=== PATIENT | male | born 1945 | race Caucasian/White ===

== ENCOUNTER 2020-09-28 18:12 | Emergency (ER) | payer OTHER ==
[2020-09-28] MEDS ORDERED: Sodium Chloride 0.9% 10 ML Syringe FLUSH PRN (18:35)
--- NOTE | 2020-09-28 18:40 | EDM.PDOC ---
ED HPI GENERAL MEDICAL PROBLEM - General Stated Complaint: FALL Time Seen by Provider: 09/28/20 18:28 Source of Information: Reports: Patient, Family - History of Present Illness INITIAL COMMENTS - FREE TEXT/NARRATIVE: Adolfo is a 74 y/o male who comes to the ER with complaints of a red warm area on his abdomen. He reports notcing last night that he had some red streaks on his abdomen and then today things got worse. No fever, but the rash on his abdomen seemed to spread almost over the entire region. Last night he did notice the areas was tender. He does have a wound on the anterior left leg that he is seeing [facility] care for. His primary care if the [facility] in [place] and he was seen there last week. He is also a diabetic. - Related Data Allergies Allergy/AdvReac Type Severity Reaction Status Date / Time No Known Allergies Allergy Verified 09/28/20 18:50 Home Meds: Home Meds Apixaban [Eliquis] 5 mg PO BID 09/28/20 [History] Sulfamethoxazole/Trimethoprim [Bactrim Ds Tablet] 1 each PO BID #18 tablet 09/28/20 [Rx] Review of Systems - Review of Systems Review Of Systems: See Below Constitutional: Reports: No Symptoms Eyes: Reports: No Symptoms Ears: Reports: No Symptoms Nose: Reports: No Symptoms Mouth/Throat: Reports: No Symptoms Respiratory: Reports: No Symptoms Cardiovascular: Reports: No Symptoms GI/Abdominal: Reports: No Symptoms Genitourinary: Reports: No Symptoms Musculoskeletal: Reports: No Symptoms Skin: Reports: Rash, Erythema (abdomen) Neurological: Reports: No Symptoms Psychiatric: Reports: No Symptoms ED EXAM, GENERAL - Physical Exam Exam: See Below General Appearance: Alert, WD/WN, No Apparent Distress (Elderly male) Eye Exam: Bilateral Eye: PERRL Ears: Hearing Grossly Normal Nose: Normal Inspection, Normal Mucosa Throat/Mouth: Normal Inspection, Normal Lips, Normal Voice Head: Atraumatic, Normocephalic Neck: Normal Inspection Respiratory/Chest: No Respiratory Distress, Lungs Clear, Chest Non-Tender Cardiovascular: Normal Peripheral Pulses, Regular Rate, Rhythm GI/Abdominal: Normal Bowel Sounds, Soft, Tender (Slightly when touched, note erythema to almost entrie abdome region with strekaing up towards the chest noted.) (Male) Exam: Deferred Rectal (Males) Exam: Deferred Back Exam: Normal Inspection Extremities: Other (Note right AKA, left lower leg has large wound to anterior cameron region, soem flaking and moisture noted, no drainage, does have a wound covering over the area that was placed by wound clinic.) Neurological: Alert, Oriented, CN II-XII Intact, No Motor/Sensory Deficits Psychiatric: Normal Affect, Normal Mood Skin Exam: Warm, Dry, Normal Color Course - Vital Signs Text/Narrative:: 1822 The patient was seen by the HOSPITALITY DIRECTOR. Labs done. Saline lock placed. 1929 Labs reviewed. CBC note WBC=12.7, diff neg; CMP Sex Therapist=1.5, Xkxkdqs=239; CRP=7.8. 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 Will given Vancomycin 1.5gm IVPB then start on course of Bactrim DS. He was also given Bactrim DS 1 tablet po. Erythematous region marked with skin marker. Discussed with patient and his that will discharge to home on a course of Bactrim and patient will need to be rechecked if the cellulitis spreads. If symptoms worse and he need to return, discussed that he would most likely need inpatient abx therapy. Patient remained stable for the Vancomycin infusion. Written instructions were given to the patient and his and he left the ER in stable condition. Last Recorded V/S: Last Vital Signs Temp 36.6 C 09/28/20 18:20 Pulse 87 09/28/20 18:20 Resp 18 09/28/20 18:20 BP 101/58 L 09/28/20 18:20 Pulse Ox 92 L 09/28/20 18:20 - Orders/Labs/Meds Orders: Active Orders 24 hr Category Date Time Status Sodium Chloride 0.9% [Saline Flush] Med 09/28/20 18:35 Active 10 ml FLUSH ASDIRECTED PRN VANCOmycin 1.5 GM/300 ML 1.5 gm Med 09/28/20 19:35 Active Premix Bag 1 bag IV ONETIME Saline Lock Insert [OM.PC] Stat Oth 09/28/20 18:35 Ordered Medication Orders Vancomycin HCl 1.5 gm/ Premix 300 mls @ 200 mls/hr IV ONETIME ONE Stop: 09/28/20 21:04 Last Admin: 09/28/20 19:55 Dose: 200 mls/hr Documented by: SHELL Sodium Chloride (Sodium Chloride 0.9% 10 Ml Syringe) 10 ml FLUSH ASDIRECTED PRN PRN Reason: Keep Vein Open Labs: Laboratory Tests 09/28/20 09/28/20 Range/Units 18:38 18:38 WBC 12.7 H (4.0-10.0) x10^3/uL RBC 4.99 (4.5-6.0) x10^6/uL Hgb 16.1 (14.0-18.0) g/dL Hct 46.6 (40.0-52.0) % MCV 93.4 H (78.0-93.0) fL MCH 32.3 H (26.0-32.0) pg MCHC 34.5 (32.0-36.0) g/dL RDW Coeff of Rad 13.4 (10.0-15.0) % Plt Count 282 (130-400) x10^3/uL Neut % (Auto) 76.0 (50.0-80.0) % Lymph % (Auto) 9.4 L (25.0-50.0) % [place] % (Auto) 14.2 H (2.0-11.0) % Eos % (Auto) 0.1 (0.0-4.0) % Baso % (Auto) 0.3 (0.2-1.2) % Sodium 136 (136-145) mmol/L Potassium 4.1 (3.5-5.1) mmol/L Chloride 98 (98-107) mmol/L Carbon Dioxide 28 (21-32) mmol/L Anion Gap 14.1 (5-15) mmol/L BUN 15 (7-18) mg/dL Creatinine 1.5 H (0.70-1.30) mg/dL Est Cr Clr Drug Dosing 43.26 mL/min Estimated GFR (MDRD) 46 Glucose 147 H (70-99) mg/dL Calcium 8.8 (8.5-10.1) mg/dL Corrected Calcium 9.4 (8.5-10.1) mg/dL Total Bilirubin 1.2 H (0.2-1.0) mg/dL AST 18 (15-37) U/L ALT 30 (16-63) U/L Alkaline Phosphatase 77 (46-116) U/L C-Reactive Protein 7.8 H (<=0.9) mg/dL Total Protein 8.0 (6.4-8.2) g/dL Albumin 3.2 L (3.4-5.0) g/dL Globulin 4.8 Albumin/Globulin Ratio 0.67 Meds: Medications Generic Name Dose Route Start Last Admin Trade Name Germanq PRN Reason Stop Dose Admin Vancomycin HCl 1.5 gm/ Premix 300 mls @ 200 mls/hr 09/28/20 19:35 09/28/20 19:55 IV 09/28/20 21:04 200 mls/hr ONETIME ONE Administration Sodium Chloride 10 ml 09/28/20 18:35 Sodium Chloride 0.9% 10 Ml Syringe FLUSH ASDIRECTED PRN Keep Vein Open Discontinued Medications Generic Name Dose Route Start Last Admin Trade Name Freq PRN Reason Stop Dose Admin Trimethoprim/Sulfamethoxazole 1 tab 09/28/20 19:36 09/28/20 19:50 Sulfamethoxazole/Trimethoprim 800-160 Mg Tab PO 09/28/20 19:37 1 tab ONETIME ONE Administration Trimethoprim/Sulfamethoxazole 2 packet 09/28/20 19:43 09/28/20 20:04 Take Home: Sulfamethoxazole/Trimethoprim 800-160 Mg Tab, 2 Tab Pack PO 09/28/20 19:44 2 packet ONETIME ONE Administration Departure - Departure Time of Disposition: 19:46 Disposition: Home, Self-Care 01 Clinical Impression: Cellulitis, abdominal wall Diabetes mellitus Qualifiers: Diabetes mellitus type: type 2 Diabetes mellitus manager intermediate insulin use: unspecified manager intermediate insulin use status Diabetes mellitus complication status: with skin complications Diabetes mellitus complication detail: with foot ulcer Qualified Code(s): E11.621 - Type 2 diabetes mellitus with foot ulcer - Discharge Information *PRESCRIPTION DRUG MONITORING PROGRAM REVIEWED*: No *COPY OF PRESCRIPTION DRUG MONITORING REPORT IN PATIENT FRANCISCO: No Prescriptions: Sulfamethoxazole/Trimethoprim [Bactrim Ds Tablet] 1 each PO BID #18 tablet Instructions: Cellulitis, Adult Referrals: [facility] [facility]GER [Primary Care Provider] - Additional Instructions: -Bactrim DS 1 tablets oral twice daily x 10 days #4 (ER) #18 (Rx) -Acetaminophen 325mg 2 tablets every 4-6 hours as needed for pain -Warm packs as needed the abdominal wall -Monitor the reddened area and if it is spreading you need to be seen for followup immediately -Follow up your Primary Care Provider in the next 2-3 days for a wound recheck or if symptoms not improving -Return to the ER with any concerns Sepsis Event Note (ED) - Focused Exam Vital Signs: Vital Signs Temp Pulse Resp BP Pulse Ox 09/28/20 18:20 36.6 C 87 18 101/58 L 92 L - My Orders Last 24 Hours: My Active Orders 09/28/20 18:35 Sodium Chloride 0.9% [Saline Flush] 10 ml FLUSH ASDIRECTED PRN Saline Lock Insert [OM.PC] Stat 09/28/20 19:35 VANCOmycin 1.5 GM/300 ML 1.5 gm Premix Bag 1 bag IV ONETIME - Assessment/Plan Last 24 Hours: My Active Orders 09/28/20 18:35 Sodium Chloride 0.9% [Saline Flush] 10 ml FLUSH ASDIRECTED PRN Saline Lock Insert [OM.PC] Stat 09/28/20 19:35 VANCOmycin 1.5 GM/300 ML 1.5 gm Premix Bag 1 bag IV ONETIME
[2020-09-28 19:20] LABS: ANION GAP 14.1 mmol/L (5-15)
[2020-09-28] MEDS ORDERED: VANCOmycin 1.5 GM/300 ML 1.5 GM in Premix Bag 1 BAG IV ONE (19:35)
[2020-09-28] MEDS ORDERED: Sulfamethoxazole/Trimethoprim 800-160 MG Tab PO ONE (19:36)
[2020-09-28] MEDS ORDERED: Take Home: Sulfamethoxazole/Trimethoprim 800-160 MG Tab, 2 Tab Pack PO ONE (19:43)
== END 2020-09-28 21:45 | disposition home or self-care (01) ==
LOC: VM.ED 18:12
DX: L03.311 Cellulitis of abdominal wall (principal); E11.621 Type 2 diabetes mellitus with foot ulcer; L97.929 Non-pressure chronic ulcer of unspecified part of left lower leg with unspecified severity
CPT/HCPCS: 80053; 85025; 86140; 96365; 96366; 99283; A9270; J3370